=== PATIENT | female | born 1930 | race Caucasian/White ===

== ENCOUNTER → 2016-09-17 | Outpatient (CLI) | payer OTHER, MEDICARE ==
--- NOTE | 2016-09-17 18:08 | DX ---
DEXA Bone Mineral Densitometry Clinical Indications: DEXA Bone Mineral Densitometry Clinical Indications: Postmenopausal, Prolia therapy, follow-up osteoporosis Comparison: November 14, 2014 Technique: Bone Mineral Densitometry (BMD) by Dual Energy X-Ray Absorptiometry (DEXA) was performed utilizing the [employer]uch[employer] scanner. The lumbar spine was evaluated in the AP projection. The bilat eral hips and forearm were evaluated in the AP projection. Vertebral fracture assessment was also pe rformed. AP Lumbar Spine: The L1, L2 and L3 vertebral bodies were evaluated. L4 is excluded due to degenerat remberto sclerosis. BMD: 0.896 gm/cm2 T-score: -2.3 SD Z-score: -0.3 SD Significantly increased by 11.9%. AP Left Hip: Total BMD: 0.654 gm/cm2 T-score: -2.8 SD Z-score: -0.4 SD No significant change. AP Right Hip: Total BMD: 0.610 gm/cm2 T-score: -3.2 SD Z-score: -0.8 SD No significant change. AP Left Forearm, 08/27: BMD: 0.523 gm/cm2 T-score: -4.0 SD Z-score: -0.8 SD No significant change Vertebral Fracture Assessment: No significant fracture deformity. No prevertebral aortic calcificati on, significant marginal bone spurring, facet arthrosis, or intrinsic vertebral body sclerosis that would effect the accuracy of the lumbar spine BMD measurement. Conclusion: Considering the lowest measured site, the patient remains is severely osteoporotic and a t increased risk for fracture. Since the forearm is the lowest measured site, it would be worthwhile to exclude hyperparathyroidism. Pharmacological intervention should be continued, as clinically direc ivanna. The ten year FRAX risk for any major osteoporotic fracture , which excludes the risk for a wrist frac ture, is 24.7% and for a hip fracture is 9.1%. Supplementing an insufficient diet to achieve total intakes of 1500 mg calcium and 800 International Units of vitamin D daily should be considered. Osteoporosis prevention and treatment begins by modify ing risk factors. The patient should be encouraged to participate in a regular exercise program that includes weightbearing and muscle strengthening regimens, as is clinically appropriate. Recommend follow-up DEXA in one year to assess the efficacy of pharmacologic intervention and/or lopez ection of appropriate secondary cause.
== END ==
LOC: FIMAGING 10:53
PROVIDERS: ATTEND Internal Medicine Endocrinology, Diabetes & Metabolism
DX: Z13.820 Encounter for screening for osteoporosis (principal); M81.0 Age-related osteoporosis without current pathological fracture

== ENCOUNTER → 2017-10-22 | Outpatient (CLI) | payer OTHER, MEDICARE | LOC: FIMAGING 15:47 | PROVIDERS: ATTEND Psychiatry & Neurology Neurology | DX: G31.84 Mild cognitive impairment of uncertain or unknown etiology (principal); I67.2 Cerebral atherosclerosis ==

== ENCOUNTER → 2018-11-05 | Outpatient (CLI) | payer OTHER, MEDICARE | LOC: BMCIMAGING 13:35 | PROVIDERS: ATTEND Internal Medicine Endocrinology, Diabetes & Metabolism | DX: M81.0 Age-related osteoporosis without current pathological fracture (principal); Z79.899 Other long term (current) drug therapy ==